=== PATIENT | female | born 2000 | race Caucasian/White ===

== ENCOUNTER 2021-05-30 15:04 | Emergency (ER) | payer MEDICAID ==
[~2021-05-30] VITALS: Ht 152.4 cm; Wt 45.5 kg
[2021-05-30] MEDS ORDERED: HYDR30CR3 TP (19:08)
[2021-05-30 19:39] VITALS: BP 119/65
== END 2021-05-30 20:02 | disposition home or self-care (01) ==
LOC: EMS 15:07
DX: L20.9 Atopic dermatitis, unspecified (principal); Z91.041 Radiographic dye allergy status
CPT/HCPCS: 99281; Z7502

== ENCOUNTER 2021-07-08 20:53 | Emergency (ER) | payer MEDICAID, OTHER ==
[~2021-07-08] VITALS: Ht 160 cm; Wt 52.3 kg
[~2021-07-08 20:53] MED LIST: HYDR30CR3 TP
[2021-07-08 20:58] VITALS: BP 111/67
[2021-07-08 21:39] LABS: APPEARANCE,URINE CLEAR (CLEAR); BILIRUBIN,URINE NEGATIVE (NEGATIVE); GLUCOSE, URINE (UA) NEGATIVE (NEGATIVE); KETONES,URINE 40-60 mg/dL (NEGATIVE); LEUKOCYTE ESTERASE ,URINE SMALL (NEGATIVE); NITRATE,URINE NEGATIVE (NEGATIVE); OCCULT BLOOD,URINE NEGATIVE (NEGATIVE); PROTEIN,URINE NEGATIVE (NEGATIVE); SPECIFIC GRAVITIY, URINE 1.022 (1.003-1.030); UROBILINOGEN,URINE <=1.0 mg/dL (<=1.0)
[2021-07-08 21:47] LABS: BACTERIA,URINE Rare /HPF (None Seen); RBC,URINE 0-2 /HPF (0-2); SQUAMOUS EPITHELIAL CELL,UR Few /LPF (None Seen); WBC,URINE 0-2 /HPF (0-5)
[2021-07-08 21:48] LABS: AMORPHOUS SEDIMENT,UR Few /LPF (None Seen); MUCUS,URINE Rare LPF (None Seen)
[2021-07-08] MEDS ORDERED: LIDOCAINE 5% TRANSDERMAL PATCH TD ONE (23:30)
[2021-07-08] MEDS ORDERED: KETOROLAC TROMETHAMINE 30 MG/ML VIAL IM ONE (23:30)
[2021-07-08] MEDS ORDERED: CYCLOBENZAPRINE HCL 10 MG TABLET PO ONE (23:30)
[2021-07-09] MEDS ORDERED: CYCL-448 PO (00:42)
== END 2021-07-09 01:15 | disposition home or self-care (01) ==
LOC: EMS 20:56
DX: M54.50 Low back pain, unspecified (principal); Z91.041 Radiographic dye allergy status
CPT/HCPCS: 81001; 84703; 96372; 99283; J1885